=== PATIENT | female | born 1935 | race Caucasian/White ===

== ENCOUNTER 2017-04-17 23:03 | Emergency (ER) | payer OTHER ==
[2017-04-17 23:11] VITALS: TEMP 98.4
--- NOTE | 2017-04-17 23:19 | CPEKG ---
Heart Rate: 73 RR Interval: 822 P-R Interval: 160 QRSD Interval: 84 QT Interval: 380 QTC Interval: 419 P [place]: 72 QRS [place]: 60 T Wave [place]: 73 EKG Severity - BORDERLINE ECG - EKG Impression: SINUS RHYTHM EKG Impression: PROBABLE LEFT ATRIAL ABNORMALITY Electronically Signed By: Edis Miranda 18-Apr-2017 06:45:04
--- NOTE | 2017-04-17 23:34 | EDPHY ---
H & P Stated Complaint: pt c/o intermittant left sided jaw pain today, no injury Time Seen by Provider: 04/17/17 23:17 HPI/ROS: Chief Complaint: Left face and jaw pain HPI: 81-year-old woman with no significant medical history presenting with intermittent left-sided mouth and jaw pain. Patient states that it comes on and lasts about 10-15 minutes. It then goes completely away, only to return about 30-60 minutes later. Does not have a history of the same. Is not associated with any activities. She has had some tenderness on left side of her jaw. Has not had any chest pain or shortness of breath. Is not exertional. Has not had any dental travel recently. Does not hurt to chew. It is described as a dull ache. ROS: 10 point Review of Systems is negative except as noted in the HPI. PMH: None Past surgical history: Cholecystectomy, appendectomy Medications: None Allergies: Morphine Social History: No smoking, occasional alcohol, no recreational drug use Family History: Father had an GA at 48, mother had coronary artery disease and in her 80s. Physical Exam: Gen: Awake, Alert, No Distress HEENT: Ears: Normal TMs Face: No tenderness along the trigeminal nerve or facial nerve, no erythema, Nose: no rhinorrhea Eyes: PERRLA, EOMI Mouth: Moist mucosa some mild tenderness to percussion however her left upper lower. There is no gingival erythema or swelling. There is no trismus. Neck: Supple, no JVD Chest: nontender, lungs clear to auscultation Heart: S1, S2 normal, no murmur Abd: Soft, non-tender, no guarding Back: no CVA tenderness, no midline tenderness Ext: no edema, non-tender Skin: no rash Neuro: CN II-XII intact, Sensation grossly intact, Strength 5/5 in bilateral upper and lower extremities - Personal History Current Tetanus Diphtheria and Acellular Pertussis (TDAP): Yes - Medical/Surgical History Hx Asthma: No Hx Chronic Respiratory Disease: No Hx Diabetes: No Hx Cardiac Disease: No Hx Renal Disease: No Hx Cirrhosis: No Hx Alcoholism: No Hx HIV/AIDS: No Hx Splenectomy or Spleen Trauma: No Other PMH: tonsilectomy, appendectomy, cholecysectomy - Social History Smoking Status: Former smoker Constitutional: Initial Vital Signs Temperature (C) 36.9 C 04/17/17 23:07 Heart Rate 81 04/17/17 23:07 Respiratory Rate 20 04/17/17 23:07 Blood Pressure 225/94 H 04/17/17 23:07 O2 Sat (%) 95 04/17/17 23:07 O2 Delivery Mode Nasal Cannula O2 (L/minute) 2 Allergies/Adverse Reactions: morphine Allergy (Verified 04/17/17 23:06) Home Medications: Medication Instructions Recorded Aspirin 04/17/17 Amoxicillin 500 mg PO TID 7 Days cap 04/18/17 Medical Decision Making - Diagnostics EKG Interpretation: ECG time 11:17 p.m. sinus rhythm with a rate of 73, normal axis, normal intervals, no acute ST or T-wave changes. Impression: Normal ECG. ED Course/Re-evaluation: 81-year-old with left facial pain intermittently throughout the day. ECG is normal, troponin is normal. No symptoms suggestive acute coronary syndrome at this time. Symptoms could either be dental or neurologic. She does have a little bit of tenderness to percussion. Plan will be to start her on amoxicillin, have her follow up with dentist. Otherwise follow up with primary care physician. - Data Points Laboratory Results: Laboratory Results 04/17/17 23:25 04/17/17 23:25 04/17/17 04/17/17 23:25 23:25 WBC 7.30 10^3/uL 10^3/uL (3.80-9.50) RBC 5.27 10^6/uL 10^6/uL (4.18-5.33) Hgb 15.0 g/dL g/dL (12.6-16.3) Hct 46.9 % % (38.0-47.0) MCV 89.0 fL fL (81.5-99.8) MCH 28.5 pg pg (27.9-34.1) MCHC 32.0 g/dL L g/dL (32.4-36.7) RDW 14.8 % % (11.5-15.2) Plt Count 256 10^3/uL 10^3/uL (150-400) MPV 11.5 fL fL (8.7-11.7) Neut % (Auto) 64.4 % % (39.3-74.2) Lymph % (Auto) 22.9 % % (15.0-45.0) [place] % (Auto) 9.7 % % (4.5-13.0) Eos % (Auto) 2.1 % % (0.6-7.6) Baso % (Auto) 0.8 % % (0.3-1.7) Nucleat RBC Rel Count 0.0 % % (0.0-0.2) Absolute Neuts (auto) 4.70 10^3/uL 10^3/uL (1.70-6.50) Absolute Lymphs (auto) 1.67 10^3/uL 10^3/uL (1.00-3.00) Absolute Monos (auto) 0.71 10^3/uL 10^3/uL (0.30-0.80) Absolute Eos (auto) 0.15 10^3/uL 10^3/uL (0.03-0.40) Absolute Basos (auto) 0.06 10^3/uL 10^3/uL (0.02-0.10) Absolute Nucleated RBC 0.00 10^3/uL 10^3/uL (0-0.01) Immature Gran % 0.1 % % (0.0-1.1) Immature Gran # 0.01 10^3/uL 10^3/uL (0.00-0.10) Sodium 137 mEq/L mEq/L (134-144) Potassium 4.3 mEq/L mEq/L (3.5-5.2) Chloride 102 mEq/L mEq/L (97-110) Carbon Dioxide 25 mEq/l mEq/l (22-31) Anion Gap 10 mEq/L mEq/L (8-16) BUN 17 mg/dL mg/dL (7-23) Creatinine 1.0 mg/dL mg/dL (0.6-1.0) Estimated GFR 53 Glucose 90 mg/dL mg/dL (70-100) Calcium 9.7 mg/dL mg/dL (8.5-10.4) Troponin I < 0.012 ng/mL ng/mL (0.000-0.034) Departure - Departure Disposition: Home, Routine, Self-Care Clinical Impression: Jaw pain Condition: Good Instructions: Toothache (ED) Additional Instructions: Follow up with your dentist in 1-2 days. Take her full course of antibiotics. Follow up with your primary care physician in 3-4 days. Return to the emergency department for increasing mouth pain, chest pain, shortness of breath, or any other concerns. You may alternate ibuprofen with acetaminophen every 3-4 hours as needed for pain. Referrals: Demarcus Ann MD [Primary Care Provider] - As per Instructions Prescriptions: Amoxicillin 500 mg PO TID 7 Days cap
[2017-04-17 23:47] VITALS: PULSE 68; RESP 16; O2SAT 98
[2017-04-17 23:47] LABS: % IMMATURE GRANULYOCYTES 0.1 % (0.0-1.1); ABSOLUTE IMMATURE GRANULOCYTES 0.01 10^3/uL (0.00-0.10); ADD DIFF? NO; ADD MORPH? NO; ATYPICAL LYMPHOCYTE FLAG 10 (0-99); FRAGMENT RBC FLAG 0 (0-99); HEMATOCRIT 46.9 % (38.0-47.0); LEFT SHIFT FLG 0 (0-99); LIPEMIA HEMOLYSIS FLAG 80 (0-99); MEAN CELL HEMOGLOBIN 28.5 pg (27.9-34.1); MEAN PLATELET VOLUME 11.5 fL (8.7-11.7); PLATELET COUNT 256 10^3/uL (150-400); RED BLOOD CELL COUNT 5.27 10^6/uL (4.18-5.33); RED CELL DISTRIBUTION WIDTH 14.8 % (11.5-15.2)
[2017-04-17 23:48] LABS: ADD SCAN? NO; PLATELET CLUMPS FLAG 10 (0-99)
[2017-04-18] LABS: ANION GAP 10 mEq/L (8-16); CALCIUM 9.7 mg/dL (8.5-10.4); CARBON DIOXIDE 25 mEq/l (22-31); CHLORIDE 102 mEq/L (97-110); GLOMERULAR FILTRATION RATE 53; GLUCOSE 90 mg/dL (70-100); POTASSIUM 4.3 mEq/L (3.5-5.2); SODIUM 137 mEq/L (134-144)
[2017-04-18 00:10] VITALS: BP 135/86
[2017-04-18 00:12] LABS: TROPONIN I < 0.012 ng/mL (0.000-0.034)
[2017-04-18] MEDS ORDERED: AMOXICILLIN 250 MG PREPACK#4 BTL TAKEHOME ONE (00:42)
== END 2017-04-18 01:02 | disposition home or self-care (01) ==
LOC: EEVIPCON 23:03
DX: R68.84 Jaw pain (principal); Z79.82 Long term (current) use of aspirin; Z87.891 Personal history of nicotine dependence

== ENCOUNTER 2017-07-30 12:17 | Emergency (ER) | payer OTHER ==
[2017-07-30 12:37] VITALS: O2SAT 96
--- NOTE | 2017-07-30 13:08 | EDPHY ---
H & P Stated Complaint: LLQ abd pain starting last night, intermittant lasting 10 sec then gone Time Seen by Provider: 07/30/17 13:00 HPI/ROS: CHIEF COMPLAINT: Left lower quadrant abdominal pain since last evening HISTORY OF PRESENT ILLNESS: 82-year-old female known history of diverticulosis , prior history of diverticulitis, complaining of left lower quadrant pain since last evening, nonradiating. No nausea or vomiting. No urinary abnormality. Bowel movements normal. No melena or hematochezia. Tolerating oral intake. PRIMARY CARE PROVIDER: Dr. Ann REVIEW OF SYSTEMS: A ten point review of systems was performed and is negative with the exception of the items mentioned in the HPI PAST MEDICAL & SURGICAL HISTORY: Appendectomy. SOCIAL HISTORY: Nonsmoker PHYSICAL EXAM (Prior to examination, patient consented to physical exam, hands were washed and my usual and customary physical exam procedures followed) 1) GENERAL: Well-developed, well-nourished, alert and oriented. Appears to be in no acute distress. 2) HEAD: Normocephalic, atraumatic 3) HEENT: Pupils equal, round, reactive to light bilaterally. Sclera anicteric. 4) NECK: Full range of motion, no meningeal signs. 5) LUNGS: Clear auscultation bilaterally, no wheezes, no rhonchi, no retractions. 6) HEART: Regular rate and rhythm, no murmur, no heave, no gallop. 7) ABDOMEN: No guarding, tender to palpation left lower quadrant, negative McBurney's, negative Bustillos's, negative Rovsing's, negative peritoneal sign, 8) MUSCULOSKELETAL: Moving all extremities, no focal areas of tenderness, no obvious trauma. No peripheral edema or discoloration. 9) BACK: No CVA tenderness, no midline vertebral tenderness, no fluctuance, no step-off, no obvious trauma, no visual or palpable abnormality. 10) SKIN: No rash, no petechiae. 11) Psychiatric: Patient is oriented X 3, there is no agitation. DIFFERENTIAL DIAGNOSIS: No particular include but limited to nephrolithiasis, cystitis, diverticulitis, diverticulosis, diverticular abscess or perforation - Personal History Current Tetanus Diphtheria and Acellular Pertussis (TDAP): Yes - Medical/Surgical History Hx Asthma: No Hx Chronic Respiratory Disease: No Hx Diabetes: No Hx Cardiac Disease: No Hx Renal Disease: No Hx Cirrhosis: No Hx Alcoholism: No Hx HIV/AIDS: No Hx Splenectomy or Spleen Trauma: No Other PMH: tonsilectomy, appendectomy, cholecysectomy - Social History Smoking Status: Former smoker Constitutional: Initial Vital Signs Temperature (C) 36.2 C 07/30/17 12:32 Heart Rate 64 07/30/17 12:32 Respiratory Rate 18 07/30/17 12:32 Blood Pressure 168/82 H 07/30/17 12:32 O2 Sat (%) 96 07/30/17 12:32 Allergies/Adverse Reactions: morphine Allergy (Verified 04/17/17 23:06) Home Medications: Medication Instructions Recorded NK [No Known Home Meds] 07/30/17 Medical Decision Making - Diagnostics Imaging Results: Imaging Impressions Abdomen CT 07/30/17 13:09 Impression:1. Diverticulosis without evidence of diverticulitis or pelvic abscess. 2. Possible lesion at the confluence of the common bile duct and pancreatic [place] duct causing biliary and pancreatic ductal dilatation. This is new since a CT report of March 2006. This could potentially be indicative of a small pancreatic carcinoma or noncalcified choledocholithiasis. Recommend MRI of the pancreas with MRCP. Liver function testing would also be useful. 3. Unusual exophytic lesion lower pole of the right kidney. Potentially this could represent a percutaneously treated cyst, however if the patient does not have a history for that, then this area could be evaluated by MRI at the same time as the pancreas. Of course, if there are any old outside CT exams, we would be happy to review them to assess for interval change. Results called and discussed with Anupam Vasquez, at 07/30/2017 14:54 General information for patients regarding this examination can be found at [email or web address]. If you have questions or comments about this report, please contact me at [phone] (hospital) or [phone] (cell). Images reviewed myself ED Course/Re-evaluation: 3:40 p.m.: Patient has been re-evaluated with serial examinations reveal continues to rule appear well in the ER, remained asymptomatic. Discussed her imaging results showing no evidence of diverticulitis, diverticular abscess or perforation. She is noted to have multiple other incidental findings which I think are less than likely related to her presenting signs and symptoms today in the emergency department. In the presence of normal lipase, normal liver function studies, I do not think that emergent GI consultation or admission is indicated. However, I have stressed the importance of follow-up with primary care provider and I recommend follow up with Gastroenterology for further evaluation as she may necessitate more advanced imaging. She verbalized understanding of this. She feels comfortable being discharged. All questions and concerns addressed by myself. Care of patient under supervision of primary supervising physician Dr Poole with whom I discussed care. - Data Points Laboratory Results: Laboratory Results 07/30/17 13:28 07/30/17 13:28 07/30/17 07/30/17 07/30/17 13:28 13:28 13:27 WBC 6.23 10^3/uL 10^3/uL (3.80-9.50) RBC 5.22 10^6/uL 10^6/uL (4.18-5.33) Hgb 15.5 g/dL g/dL (12.6-16.3) POC Hgb 15.6 gm/dL gm/dL (12.6-16.3) Hct 46.4 % % (38.0-47.0) POC Hct 46 % % (38-47) MCV 88.9 fL fL (81.5-99.8) MCH 29.7 pg pg (27.9-34.1) MCHC 33.4 g/dL g/dL (32.4-36.7) RDW 14.1 % % (11.5-15.2) Plt Count 262 10^3/uL 10^3/uL (150-400) MPV 10.6 fL fL (8.7-11.7) Neut % (Auto) 72.0 % % (39.3-74.2) Lymph % (Auto) 18.6 % % (15.0-45.0) [place] % (Auto) 6.9 % % (4.5-13.0) Eos % (Auto) 1.4 % % (0.6-7.6) Baso % (Auto) 0.8 % % (0.3-1.7) Nucleat RBC Rel Count 0.0 % % (0.0-0.2) Absolute Neuts (auto) 4.48 10^3/uL 10^3/uL (1.70-6.50) Absolute Lymphs (auto) 1.16 10^3/uL 10^3/uL (1.00-3.00) Absolute Monos (auto) 0.43 10^3/uL 10^3/uL (0.30-0.80) Absolute Eos (auto) 0.09 10^3/uL 10^3/uL (0.03-0.40) Absolute Basos (auto) 0.05 10^3/uL 10^3/uL (0.02-0.10) Absolute Nucleated RBC 0.00 10^3/uL 10^3/uL (0-0.01) Immature Gran % 0.3 % % (0.0-1.1) Immature Gran # 0.02 10^3/uL 10^3/uL (0.00-0.10) POC Sodium 141 mEq/L mEq/L (134-144) Sodium 142 mEq/L mEq/L (134-144) POC Potassium 4.1 mEq/L mEq/L (3.3-5.0) Potassium 4.6 mEq/L mEq/L (3.5-5.2) POC Chloride 106 mEq/L mEq/L (97-110) Chloride 108 mEq/L mEq/L (97-110) Carbon Dioxide 26 mEq/l mEq/l (22-31) Anion Gap 8 mEq/L mEq/L (8-16) POC BUN 12 mg/dL mg/dL (7-23) BUN 12 mg/dL mg/dL (7-23) Creatinine 0.8 mg/dL mg/dL (0.6-1.0) POC Creatinine 0.8 mg/dL mg/dL (0.6-1.0) Estimated GFR > 60 Glucose 90 mg/dL mg/dL (70-100) POC Glucose 94 mg/dL mg/dL (70-100) Calcium 10.1 mg/dL mg/dL (8.5-10.4) Total Bilirubin 0.5 mg/dL mg/dL (0.1-1.4) Conjugated Bilirubin 0.2 mg/dL mg/dL (0.0-0.5) Unconjugated Bilirubin 0.3 mg/dL mg/dL (0.0-1.1) AST 20 IU/L IU/L (14-46) ALT 30 IU/L IU/L (9-52) Alkaline Phosphatase 73 IU/L IU/L (38-126) Total Protein 5.9 g/dL L g/dL (6.3-8.2) Albumin 3.6 g/dL g/dL (3.5-5.0) Lipase 92 IU/L IU/L (23-300) Urine Color Urine Appearance Urine pH Ur Specific [place] Urine Protein Urine Ketones Urine Blood Urine Nitrate Urine Bilirubin Urine Urobilinogen Ur Leukocyte Esterase Urine RBC Urine WBC Ur Epithelial Cells Urine Bacteria Urine Mucus Urine Glucose 07/30/17 13:05 WBC RBC Hgb POC Hgb Hct POC Hct MCV MCH MCHC RDW Plt Count MPV Neut % (Auto) Lymph % (Auto) [place] % (Auto) Eos % (Auto) Baso % (Auto) Nucleat RBC Rel Count Absolute Neuts (auto) Absolute Lymphs (auto) Absolute Monos (auto) Absolute Eos (auto) Absolute Basos (auto) Absolute Nucleated RBC Immature Gran % Immature Gran # POC Sodium Sodium POC Potassium Potassium POC Chloride Chloride Carbon Dioxide Anion Gap POC BUN BUN Creatinine POC Creatinine Estimated GFR Glucose POC Glucose Calcium Total Bilirubin Conjugated Bilirubin Unconjugated Bilirubin AST ALT Alkaline Phosphatase Total Protein Albumin Lipase Urine Color YELLOW Urine Appearance CLEAR Urine pH 5.0 (5.0-7.5) Ur Specific [place] 1.009 (1.002-1.030) Urine Protein NEGATIVE (NEGATIVE) Urine Ketones NEGATIVE (NEGATIVE) Urine Blood NEGATIVE (NEGATIVE) Urine Nitrate NEGATIVE (NEGATIVE) Urine Bilirubin NEGATIVE (NEGATIVE) Urine Urobilinogen NEGATIVE EU EU (0.2-1.0) Ur Leukocyte Esterase NEGATIVE (NEGATIVE) Urine RBC 3-5 /hpf H /hpf (0-3) Urine WBC 1-3 /hpf /hpf (0-3) Ur Epithelial Cells TRACE /lpf /lpf (NONE-1+) Urine Bacteria TRACE /hpf H /hpf (NONE SEEN) Urine Mucus TRACE /lpf /lpf (NONE-1+) Urine Glucose NEGATIVE (NEGATIVE) Point of Care Test Results: 07/30/17 13:27 POC Sodium 141 POC Potassium 4.1 POC Chloride 106 POC BUN 12 POC Creatinine 0.8 POC Glucose 94 Departure - Departure Disposition: Home, Routine, Self-Care Clinical Impression: Abdominal pain Qualifiers: Abdominal location: left lower quadrant Qualified Code(s): R10.32 - Left lower quadrant pain Condition: Good Instructions: Acute Abdominal Pain (ED) Additional Instructions: Seek immediate medical attention if you develop new or worsening symptoms, if you develop fevers, chills, inability to tolerate oral intake or any other symptoms that concerns you. Referrals: Gabo Alejandra MD [Medical Doctor] - 5-7 days, call for appt. (Dr. Alejandra is a sales appointment coordinator) Demarcus Ann MD [Primary Care Provider] - 2-3 days, call for appt.
[2017-07-30 13:42] LABS: PLATELET COUNT 262 10^3/uL (150-400)
[2017-07-30] MEDS ORDERED: IOPAMIDOL (ISOVUE-300) 100 ML BTL ONE (13:50)
[2017-07-30 16:01] VITALS: BP 175/82; PULSE 75; RESP 16; TEMP 97.9
== END 2017-07-30 16:00 | disposition home or self-care (01) ==
DX: R10.32 Left lower quadrant pain (principal); Z87.891 Personal history of nicotine dependence; Z90.49 Acquired absence of other specified parts of digestive tract
CPT/HCPCS: 74177; 99285; Q9967; 82947-QW

== ENCOUNTER → 2017-08-11 | Outpatient (CLI) | payer OTHER ==
[~2017-08-11] MED LIST: GADOBUTROL 10 ML VIAL IVP ONE
== END ==
LOC: FIMAGING 15:27
PROVIDERS: ATTEND Internal Medicine
DX: K83.8 Other specified diseases of biliary tract (principal); K59.00 Constipation, unspecified
CPT/HCPCS: 74183; A9585

== ENCOUNTER 2018-01-22 15:02 | Emergency (ER) | payer OTHER ==
--- NOTE | 2018-01-22 15:23 | CPEKG ---
Heart Rate: 65 RR Interval: 923 P-R Interval: 164 QRSD Interval: 86 QT Interval: 408 QTC Interval: 425 P [place]: 74 QRS [place]ord: 60 T Wave [place]: 73 EKG Severity - BORDERLINE ECG - EKG Impression: SINUS RHYTHM EKG Impression: ATRIAL PREMATURE COMPLEX EKG Impression: PROBABLE LEFT ATRIAL ABNORMALITY Electronically Signed By: Tracy [place] 22-Jan-2018 22:11:55
[2018-01-22 15:46] LABS: PLATELET COUNT 258 10^3/uL (150-400)
--- NOTE | 2018-01-22 15:50 | EDPHY ---
HPI/HX/ROS/PE/MDM Narrative: CHIEF COMPLAINT: Irregular heartbeat, fatigue HISTORY OF PRESENT ILLNESS: The patient is an 82 y/o female with a history of hypercholesteremia complaining of several weeks of irregular heartbeat and fatigue. The irregular heartbeat is described as intermittently feeling like the heart misses a beat every four or five beats. She denies feeling like her heart is racing. She reports having several instances where the heartbeat has been completely irregular for up to 10 minutes. She does report several brief episodes of dizziness and lightheadedness during her symptomatology but denies any syncope. She informed her daughter of her symptoms and her daughter directed her to the ED. She had an episode of diarrhea this morning. She denies nausea, vomiting, shortness of breath, or any other associated symptoms. She denies cancer or clotting history. She was a smoker but quit 30 years ago. She consumes alcohol in moderation. She has been using a CBD oil spray for the past few days. No fever, chills, chest pain, shortness of breath, vomiting, diarrhea, urinary complaints, headache, lightheadedness. REVIEW OF SYSTEMS: Aside from elements discussed in the HPI, a comprehensive 10-point review of systems was reviewed and is negative. PAST MEDICAL HISTORY: Hypercholesteremia SOCIAL HISTORY: Lives in [place], , retired VITAL SIGNS: Reviewed by me. Patient's heart rate on the monitor is 66 , sinus rhythm. GENERAL: Well-developed, well-nourished, resting comfortably in no respiratory distress. HEENT: Atraumatic. Eyes: No icterus, no injection. Mouth: moist mucous membranes. No erythema or lesions. Neck: supple with no adenopathy. LUNGS: Clear to auscultation bilaterally, no wheezes, rhonchi or rales. CARDIAC: Regular rate and rhythm, no rubs, murmurs or gallops. ABDOMEN: Soft, nontender, nondistended, bowel sounds normal. BACK: No CVA tenderness. EXTREMITIES: No trauma. No edema. Range of motion is normal throughout. NEURO: Alert and oriented, grossly nonfocal. SKIN: Warm and dry, no rash. PSYCHIATRIC: Normal mentation, no agitation. ED Course: The patient presents with intermittent heart palpitations and fatigue. Her palpitations are described as feeling like her heart misses a beat every few beats. EKG shows one premature atrial contraction. Plan for CBC, basic metabolic panel, troponin, D-dimer, and BNP. Troponin is negative. Metabolic panel is normal. D-dimer is negative. Chest x -ray was read by Radiology as potential early congestive failure. Patient did have a BMP performed which was 87. 5:00 PM - Work up has been largely negative. I feel she can be discharged with follow up with cardiology. She agrees to this course of action. Please see the discharge instructions. MDM: Differential diagnoses for the patient's sensation of palpitations was considered including but not limited to sinus tachycardia, PACs, PVCs, SVT, atrial fibrillation, atrial flutter, anxiety, panic attack. - Data Points Imaging Results: Imaging Impressions Chest X-Ray 01/22/18 15:30 Impression: 1. Suspect low-grade congestive heart failure without quintin pulmonary edema. 2. Query airways disease. Imaging: I viewed and interpreted images myself Laboratory Results: Laboratory Results 01/22/18 15:29 01/22/18 15:29 01/22/18 01/22/18 01/22/18 15:40 15:34 15:29 WBC RBC Hgb Hct MCV MCH MCHC RDW Plt Count MPV Neut % (Auto) Lymph % (Auto) [place] % (Auto) Eos % (Auto) Baso % (Auto) Nucleat RBC Rel Count Absolute Neuts (auto) Absolute Lymphs (auto) Absolute Monos (auto) Absolute Eos (auto) Absolute Basos (auto) Absolute Nucleated RBC Immature Gran % Immature Gran # D-Dimer 0.27 ug/mLFEU ug/mLFEU (0.00-0.50) Sodium Potassium Chloride Carbon Dioxide Anion Gap BUN Creatinine Estimated GFR Glucose Calcium POC Troponin I 0.00 ng/mL ng/mL (0.00-0.08) Troponin I < 0.012 ng/mL ng/mL (0.000-0.034) NT-Pro-B Natriuret Pep 01/22/18 01/22/18 01/22/18 15:29 15:29 11:29 WBC 7.94 10^3/uL 10^3/uL (3.80-9.50) RBC 5.58 10^6/uL H 10^6/uL (4.18-5.33) Hgb 15.9 g/dL g/dL (12.6-16.3) Hct 48.5 % H % (38.0-47.0) MCV 86.9 fL fL (81.5-99.8) MCH 28.5 pg pg (27.9-34.1) MCHC 32.8 g/dL g/dL (32.4-36.7) RDW 14.7 % % (11.5-15.2) Plt Count 258 10^3/uL 10^3/uL (150-400) MPV 11.3 fL fL (8.7-11.7) Neut % (Auto) 70.3 % % (39.3-74.2) Lymph % (Auto) 19.3 % % (15.0-45.0) [place] % (Auto) 7.9 % % (4.5-13.0) Eos % (Auto) 1.8 % % (0.6-7.6) Baso % (Auto) 0.6 % % (0.3-1.7) Nucleat RBC Rel Count 0.0 % % (0.0-0.2) Absolute Neuts (auto) 5.58 10^3/uL 10^3/uL (1.70-6.50) Absolute Lymphs (auto) 1.53 10^3/uL 10^3/uL (1.00-3.00) Absolute Monos (auto) 0.63 10^3/uL 10^3/uL (0.30-0.80) Absolute Eos (auto) 0.14 10^3/uL 10^3/uL (0.03-0.40) Absolute Basos (auto) 0.05 10^3/uL 10^3/uL (0.02-0.10) Absolute Nucleated RBC 0.00 10^3/uL 10^3/uL (0-0.01) Immature Gran % 0.1 % % (0.0-1.1) Immature Gran # 0.01 10^3/uL 10^3/uL (0.00-0.10) D-Dimer Sodium 141 mEq/L mEq/L (135-145) Potassium 4.2 mEq/L mEq/L (3.3-5.0) Chloride 105 mEq/L mEq/L (97-110) Carbon Dioxide 24 mEq/l mEq/l (22-31) Anion Gap 12 mEq/L mEq/L (8-16) BUN 19 mg/dL mg/dL (7-23) Creatinine 0.8 mg/dL mg/dL (0.6-1.0) Estimated GFR > 60 Glucose 92 mg/dL mg/dL (70-100) Calcium 9.9 mg/dL mg/dL (8.5-10.4) POC Troponin I Troponin I NT-Pro-B Natriuret Pep 87 pg/mL pg/mL (0-450) Medications Given: Discontinued Medications Oxycodone/Acetaminophen (Percocet 5/325) 1 tab PO EDNOW ONE Stop: 01/22/18 17:05 Last Admin: 01/22/18 17:16 Dose: Not Given Point of Care Test Results: Chemistry 01/22/18 15:40 POC Troponin I 0.00 ng/mL ng/mL (0.00-0.08) General Time Seen by Provider: 01/22/18 15:18 Initial Vital Signs: Initial Vital Signs Temperature (C) 36.7 C 01/22/18 15:06 Heart Rate 70 01/22/18 15:06 Respiratory Rate 16 01/22/18 15:06 Blood Pressure 191/73 H 01/22/18 15:06 O2 Sat (%) 94 01/22/18 15:06 O2 Delivery Mode Room Air Allergies/Adverse Reactions: morphine Allergy (Verified 01/22/18 15:06) Home Medications: Medication Instructions Recorded NK [No Known Home Meds] 07/30/17 Departure - Departure Disposition: Home, Routine, Self-Care Clinical Impression: Heart palpitations Condition: Good Instructions: Heart Palpitations (ED) Additional Instructions: No clear cause of your palpitations has been identified. Your chest x-ray does look like you may have very early pulmonary congestion, or small amount of fluid in the lungs. Please follow up with primary care physician to obtain a Holter monitor as well as echocardiogram. You have also been given referral to Cardiology if you would prefer to follow up directly with Cardiology. Return to the emergency department or seek care urgently if you have persistent , sustained palpitations associated with chest pain, shortness of breath, lightheadedness, dizziness, or fainting. Referrals: Demarcus Ann MD [Primary Care Provider] - As per Instructions Chaitanya Mckenzie MD [Medical Doctor] - As per Instructions Report Scribed for: Tracy [place] Report Scribed by: Bebe Tsang Date of Report: 01/22/18 Time of Report: 15:52 Physician Review and Approval Statement: Portions of this note were transcribed by a medical receptionist. I personally performed a history, physical exam, medical decision making, and confirmed accuracy of information the transcribed note.
[2018-01-22] MEDS ORDERED: OXYCODONE/APAP 5/325 TAB PO ONE (17:04)
[2018-01-22 17:32] VITALS: BP 145/88
== END 2018-01-22 17:35 | disposition home or self-care (01) ==
DX: R00.2 Palpitations (principal)
CPT/HCPCS: 84484-PO

== ENCOUNTER 2018-02-08 20:41 | Emergency (ER) | payer OTHER ==
--- NOTE | 2018-02-08 21:02 | EDPHY ---
H & P Stated Complaint: Palpitations, HTN Time Seen by Provider: 02/08/18 20:53 HPI/ROS: CHIEF COMPLAINT: Hypertension, palpitations HISTORY OF PRESENT ILLNESS: Patient is an 82-year-old female who states that she has had been having mild heart palpitations for the last 2 days. She also noticed that her blood pressure was high. No headaches. No chest pain. No shortness of breath. No recent fevers or illness. No GI symptoms. The patient was seen here a couple of weeks ago with similar symptoms and had a negative workup. She does not take any blood pressure medications. REVIEW OF SYSTEMS: Constitutional: denies: chills, fever, recent illness, recent injury EENTM: denies: blurred vision, double vision, nose congestion Respiratory: denies: cough, shortness of breath Cardiac: See HPI denies: chest pain, lightheadedness, palpitations Gastrointestinal/Abdominal: denies: abdominal pain, diarrhea, nausea, vomiting, blood streaked stools Genitourinary: denies: dysuria, frequency, hematuria, pain Musculoskeletal: denies: joint pain, muscle pain Skin: denies: lesions, rash, jaundice, bruising Neurological: denies: headache, numbness, paresthesia, tingling, dizziness, weakness Hematologic/Lymphatic: denies: blood clots, easy bleeding, easy bruising Immunologic/allergic: denies: HIV/AIDS, transplant EXAM: GENERAL: Well-appearing, well-nourished and in no acute distress. HEAD: Atraumatic, normocephalic. EYES: Pupils equal round and reactive to light, extraocular movements intact, sclera anicteric, conjunctiva are normal. ENT: TMs normal, nares patent, oropharynx clear without exudates. Moist mucous membranes. NECK: Normal range of motion, supple without lymphadenopathy or JVD. LUNGS: Breath sounds clear to auscultation bilaterally and equal. No wheezes rales or rhonchi. HEART: occational premature contractions without murmurs, rubs or gallops. ABDOMEN: Soft, nontender, normoactive bowel sounds. No guarding, no rebound. No masses appreciated. BACK: No CVA tenderness, no spinal tenderness, step-offs or deformities EXTREMITIES: Normal range of motion, no pitting or edema. No clubbing or cyanosis. NEUROLOGICAL: Cranial nerves II through XII grossly intact. Normal speech, normal gait. 5/5 strength, normal movement in all extremities, normal sensation PSYCH: Normal mood, normal affect. SKIN: Warm, dry, normal turgor, no visible rashes or lesions. Source: Patient Exam Limitations: No limitations - Personal History Current Tetanus/Diphtheria Vaccine: Yes Current Tetanus Diphtheria and Acellular Pertussis (TDAP): Yes - Medical/Surgical History Hx Asthma: No Hx Chronic Respiratory Disease: No Hx Diabetes: No Hx Cardiac Disease: No Hx Renal Disease: No Hx Cirrhosis: No Hx Alcoholism: No Hx HIV/AIDS: No Hx Splenectomy or Spleen Trauma: No Other PMH: tonsilectomy, appendectomy, cholecysectomy, THN - Family History Significant Family History: No pertinent family hx - Social History Smoking Status: Former smoker Alcohol Use: None Constitutional: Initial Vital Signs Temperature (C) 36.6 C 02/08/18 20:46 Heart Rate 76 02/08/18 20:46 Respiratory Rate 16 02/08/18 20:46 Blood Pressure 217/86 H 02/08/18 20:46 O2 Sat (%) 95 02/08/18 20:46 O2 Delivery Mode Room Air Allergies/Adverse Reactions: morphine Allergy (Verified 01/22/18 15:06) Home Medications: Medication Instructions Recorded NK [No Known Home Meds] 07/30/17 Medical Decision Making - Diagnostics EKG Interpretation: An EKG obtained and was read and documented in trace view. Please see trace view for full reading and report. Sinus rhythm, premature atrial contractions ED Course/Re-evaluation: 10:30 p.m. the patient's lab work and EKG are reassuring. She has premature atrial contractions which correlate with her palpitations symptoms. They have now resolved. Her blood pressure is currently 140/70. She states that she is eager to go home. I recommended that she keep a journal of her blood pressures and follow up with her primary to discuss blood pressure management. I also will refer her to a corporate operations compliance manager although this arrhythmia is thus far benign. Differential Diagnosis: Partial list of the Differential diagnosis considered include but were not limited to; premature atrial contractions premature, ventricular contractions, anxiety, hypertension and although unlikely based on the history and physical exam, I also considered TIA, CVA, acute coronary disease, PE, infection dissection. I discussed these differential diagnoses and the plan with the patient as well as the usual and expected course. The patient understands that the diagnosis is provisional and that in medicine we are not always correct and that further workup is often warranted. Usual and customary warnings were given. All of the patient's questions were answered. The patient was instructed to return to the emergency department should the symptoms at all worsen or return, otherwise to followup with the physician as we discussed. - Data Points Laboratory Results: Laboratory Results 02/08/18 21:14 02/08/18 21:14 02/08/18 02/08/18 02/08/18 21:19 21:14 21:14 WBC 6.94 10^3/uL 10^3/uL (3.80-9.50) RBC 5.26 10^6/uL 10^6/uL (4.18-5.33) Hgb 14.9 g/dL g/dL (12.6-16.3) Hct 45.5 % % (38.0-47.0) MCV 86.5 fL fL (81.5-99.8) MCH 28.3 pg pg (27.9-34.1) MCHC 32.7 g/dL g/dL (32.4-36.7) RDW 14.8 % % (11.5-15.2) Plt Count 255 10^3/uL 10^3/uL (150-400) MPV 11.6 fL fL (8.7-11.7) Neut % (Auto) 63.2 % % (39.3-74.2) Lymph % (Auto) 23.9 % % (15.0-45.0) [place] % (Auto) 9.7 % % (4.5-13.0) Eos % (Auto) 2.0 % % (0.6-7.6) Baso % (Auto) 0.9 % % (0.3-1.7) Nucleat RBC Rel Count 0.0 % % (0.0-0.2) Absolute Neuts (auto) 4.39 10^3/uL 10^3/uL (1.70-6.50) Absolute Lymphs (auto) 1.66 10^3/uL 10^3/uL (1.00-3.00) Absolute Monos (auto) 0.67 10^3/uL 10^3/uL (0.30-0.80) Absolute Eos (auto) 0.14 10^3/uL 10^3/uL (0.03-0.40) Absolute Basos (auto) 0.06 10^3/uL 10^3/uL (0.02-0.10) Absolute Nucleated RBC 0.00 10^3/uL 10^3/uL (0-0.01) Immature Gran % 0.3 % % (0.0-1.1) Immature Gran # 0.02 10^3/uL 10^3/uL (0.00-0.10) Sodium 142 mEq/L mEq/L (135-145) Potassium 4.4 mEq/L mEq/L (3.3-5.0) Chloride 109 mEq/L mEq/L (97-110) Carbon Dioxide 21 mEq/l L mEq/l (22-31) Anion Gap 12 mEq/L mEq/L (8-16) BUN 13 mg/dL mg/dL (7-23) Creatinine 0.7 mg/dL mg/dL (0.6-1.0) Estimated GFR > 60 Glucose 91 mg/dL mg/dL (70-100) Calcium 9.9 mg/dL mg/dL (8.5-10.4) POC Troponin I 0.00 ng/mL ng/mL (0.00-0.08) Point of Care Test Results: Chemistry 02/08/18 21:19 POC Troponin I 0.00 ng/mL ng/mL (0.00-0.08) Departure - Departure Disposition: Home, Routine, Self-Care Clinical Impression: Premature atrial beats Hypertension Qualifiers: Hypertension type: essential hypertension Qualified Code(s): I10 - Essential ( primary) hypertension Condition: Fair Instructions: Premature Atrial Contractions (ED), Hypertension in the Older Adult (ED) Referrals: Demarcus Ann MD [Primary Care Provider] - 2-3 days, call for appt.
--- NOTE | 2018-02-08 21:06 | CPEKG ---
Heart Rate: 68 RR Interval: 882 P-R Interval: 156 QRSD Interval: 84 QT Interval: 400 QTC Interval: 426 P [place]: 76 QRS [place]: 61 T Wave [place]: 73 EKG Severity - ABNORMAL ECG - EKG Impression: SINUS RHYTHM EKG Impression: MULTIPLE ATRIAL PREMATURE COMPLEXES Electronically Signed By: Trey Gill 08-Feb-2018 21:10:42
[2018-02-08 21:58] LABS: PLATELET COUNT 255 10^3/uL (150-400)
[2018-02-08 22:42] VITALS: BP 146/77
== END 2018-02-08 22:42 | disposition home or self-care (01) ==
DX: I49.1 Atrial premature depolarization (principal); I10 Essential (primary) hypertension; Z87.891 Personal history of nicotine dependence
CPT/HCPCS: 84484-PO

== ENCOUNTER → 2018-04-06 | Outpatient (CLI) | payer OTHER | LOC: BHFA 08:30 | PROVIDERS: ATTEND Internal Medicine Interventional Cardiology | DX: R06.02 Shortness of breath (principal) | CPT/HCPCS: 78452; 93017; A9500; J2785 ==